=== PATIENT | male | born 1995 | race Caucasian/White ===

== ENCOUNTER 2022-05-21 18:45 | Outpatient (NON) | payer BC, SELFPAY | END 2022-05-21 18:46 | disposition home or self-care (01) | LOC: ANHLAB 18:47 | PROVIDERS: PCP Family Medicine; Visit Provider Family Medicine | DX: R31.29 Other microscopic hematuria (principal) | CPT/HCPCS: 87086 ==

== ENCOUNTER 2022-07-17 10:24 | Emergency (ER) | payer BC, SELFPAY ==
--- NOTE | ~2022-07-17 | CT_ITS ---
EXAMINATION: CT abdomen pelvis w con DATE: 07/17/2022 12:04 INDICATION: Left lower quadrant abdominal pain. TECHNIQUE: Computed tomography (CT) of the abdomen and pelvis was performed with 100 mL Omnipaque 350 intravenous contrast. Automated exposure control and iterative reconstruction technique were employe d. The dose-length product was 1517.44 mGy-cm. COMPARISON: None. FINDINGS: The visualized portions of the lung bases demonstrate centrilobular nodules and groundglass opacities in laterobasal segment left lower lobe, consistent with pneumonia. No pleural effusion. Th e heart size is normal. No pericardial effusion. There is diffuse hepatic steatosis. The gallbladder, spleen, pancreas, adrenal glands, and kidneys are normal. There is prominent fat in the inguinal can als that may be hernias. There is fat stranding around an epiploic appendage of sigmoid colon, consis tent with epiploic appendagitis. The appendix is normal. There are no pathologically enlarged lymph n odes. There is no free intraperitoneal fluid. The spine demonstrates Schmorl's nodes at multiple leve ls. There is mild thoracic spondylosis. IMPRESSION: 1. Epiploic appendagitis involving sigmoid colon. 2. Mild pneumonia in left lower lobe. Reviewed, dictated and finalized at location [facility]
[2022-07-17 10:37] VITALS: BP 155/100; PULSE 80; RESP 16; TEMP 36.2; O2SAT 100
[2022-07-17 11:09] LABS: Basophils Percent Auto 0.5 % (0.2-1.2); Eosinophils Absolute Auto 0.1 K/mm3 (0-0.3); Eosinophils Percent Auto 1.7 % (0-4.4); Hematocrit 50.6 % (42.0-52.0); Hemoglobin 16.6 g/dL (14.0-18.0); Immature Granulocyte Absolute 0.05 K/mm3 (0.00-0.031); Immature Granulocyte Percent A 0.6 % (0-0.5); Lymphocytes Absolute Auto 1.68 K/mm3 (0.9-3.2); Lymphocytes Percent Auto 20.2 % (18.3-44.2); Mean Corpuscular HGB Conc 32.8 g/dl (32-36); Mean Corpuscular Hemoglobin 29.9 pg (26-34); Mean Platelet Volume 8.7 fl (7.4-10.4); Monocytes Absolute Auto 0.9 K/mm3 (0.1-0.6); Neutrophils Absolute Auto 5.5 K/mm3 (1.3-6.7); Platelet Count Result 309 k/mm3 (150-375); Red Blood Count 5.56 M/mm3 (4.6-6.20); Red Cell Distribution Width 12.1 % (11.5-14.5); White Blood Count 8.3 K/mm3 (4.5-10.0)
--- NOTE | 2022-07-17 11:09 | ED.ABDPAIN ---
HPI - Abdominal Pain General Chief Complaint: Abdominal Pain <CANDE Thompson Last Filed: 07/17/22 16:13> Stated Complaint: abd pain <CANDE Thompson Last Filed: 07/17/22 16:13> Time Seen by Provider: 07/17/22 10:54 <CANDE Thompson Last Filed: 07/17/22 16:13> Source: patient <CADNE Thompson Last Filed: 07/17/22 16:13> Mode of arrival: ambulatory <CANDE Thompson Last Filed: 07/17/22 16:13> Limitations: no limitations <CANDE Thompson Last Filed: 07/17/22 16:13> History of Present Illness HPI narrative: This is a 27-year-old male comes in the ED with chief complaint of left lower quadrant abdominal pain x5 days. He states that has been continuous and gradually worsening since onset. States it is worse in certain positions especially with extension. Rates it at a 4 out of 10 when he extends his back. Pain is minimal while he rests in bed. Reports some nausea last night but no vomiting. Nausea is resolved. Denies diarrhea. Has distant history of rectal bleeding but none now. He states the pain does not radiate anywhere else in the abdomen. Denies fevers, chills, chest pain, shortness breath, headache. Denies nausea or vomiting. Triage note states rectal bleeding but he told me that this has not occurred for several weeks. <CANDE Thompson Last Filed: 07/17/22 16:13> Related Data Home Medications: Home Medications Medication Instructions Recorded Confirmed cetirizine 10 mg tablet (Zyrtec) 10 mg PO DAILY PRN 03/31/22 05/21/22 <CANDE Thompson Last Filed: 07/17/22 16:13> Allergies/Adverse Reactions: Allergies Allergy/AdvReac Type Severity Reaction Status Date / Time morphine Allergy Mild Rash Verified 07/17/22 10:40 <CANDE Thompson Last Filed: 07/17/22 16:13> Review of Systems Review of Systems: CONSTITUTIONAL: Denies fever, chills, or sweats. EYES: Denies visual changes, redness, or discharge. ENT: Denies rhinorrhea, congestion, sore throat, or otalgia. CARDIOVASCULAR: Denies chest pain, palpitations, or edema. RESPIRATORY: Denies cough or dyspnea. GASTROINTESTINAL: Endorses abdominal pain. Denies nausea, vomiting, or diarrhea. GENITOURINARY: Denies dysuria or hematuria. SKIN: Denies rash or itching. MUSCULOSKELETAL: Denies back pain, joint pain, or myalgia. NEUROLOGIC: Denies headache, numbness, dizziness, or weakness. PSYCHIATRIC: Denies anxiety or depression. <Fahad Madrid PA-C - Last Filed: 07/17/22 16:13> [facility] Past Medical History Medical History: Medical History COVID-19 06/2020 Family history of colon cancer History of delayed puberty <CANDE Thompson Last Filed: 07/17/22 16:13> Surgical History Surgical History: Surgical History History of hand surgery 08/2018 - repair of left hand 4th finger extensor tendon due to chain saw injury History of tonsillectomy and adenoidectomy (~2014) 02/2015 [place] teeth extracted (~2011) <Fahad Madrid PA-C - Last Filed: 07/17/22 16:13> Family History Family History: Family History Father Asthma <CANDE Thompson Last Filed: 07/17/22 16:13> Social History Social History: Social History Smoking status: Never smoker Tobacco type: e-cigarettes/vaping Alcohol intake: current Drinks per week: 6 Substance use: never Substance use type: does not use Lack of Transportation: No Lack of Food: Never True Current Housing: I Have Housing Concerned About Future Housing: No Difficulty Paying Gas/Electric Bills: No Difficulty Paying for Meds: No Currently Unemployed: No Education: High School Diploma/GED Difficulty w/ Childcare or Family Care: No Living arrangements
[2022-07-17 11:17] LABS: Alanine Aminotransferase 45 U/L (6-50); Alkaline Phosphatase 76 U/L (38-126); Anion Gap 9 mmol/L (8-16); Aspartate Amino Transferase 31 U/L (17-59); Bilirubin,Total 0.7 mg/dL (0.2-1.3); Blood Urea Nitrogen 13 mg/dL (9-20); Calcium 9.4 mg/dL (8.4-10.2); Carbon Dioxide 28 mmol/L (22-30); Chloride 99 mmol/L (98-107); Estimated CRCL calculation 159 ml/min; Estimated Glomerular Filt Rate > 60; Glucose 116 mg/dL (65-110); Lipase 116 U/L (23-300); Potassium 4.4 mmol/L (3.4-5.0); Sodium 136 mmol/L (137-145)
== END 2022-07-17 14:00 | disposition home or self-care (01) ==
PROVIDERS: Emergency Medicine; Emergency Provider Physician Assistant; PCP Family Medicine
DX: K63.89 Other specified diseases of intestine (principal); J18.9 Pneumonia, unspecified organism; Z86.16 Personal history of COVID-19; F17.290 Nicotine dependence, other tobacco product, uncomplicated
CPT/HCPCS: 36415; 74177; 80053; 83690; 85025; 99284; Q9967